=== PATIENT | male | born 1960 | race American Indian/Alaskan Native ===

== ENCOUNTER 2019-06-18 13:32 | Emergency (ER) | payer SELFPAY ==
[2019-06-18 13:53] VITALS: BP 130/79
--- NOTE | 2019-06-18 13:59 | Emergency Department Report ---
Chief Complaint: Anxiety Stated Complaint: ANXIETY/KNEE INFLAMMATION Time Seen by Provider: 06/18/19 13:56 - HPI History of Present Illness: 58 y o male PMH of anxiety presents with cc of left knee pain s/p trip but no fall incident yesterday. She states she tripped over something yesterday but did not fall. Patient states his dentist and having some left knee pain since the incident. He denies trauma, injuries or fall, - ROS Review of Systems: as noted in HPI - Exam Vital Signs: Vital Signs 06/18/19 13:51 Temperature 98.3 F Pulse Rate 73 Respiratory 16 Rate Blood Pressure 130/79 O2 Sat by Pulse 99 Oximetry Physical Exam: GEN:aao x 3, ambulatory EXT: non tender, no swelling MSE screening note: Focused history and physical exam performed. Due to findings the following was ordered: ED Medical Decision Making - Medical Decision Making 58-year-old male presents here for knee pain. Discussed the patient this is not a medical emergency and is to follow-up with the primary care physician. Vital signs are normal patient is in no acute distress. Discussed follow-up with therapist to manage his anxiety. ED Disposition for MSE Clinical Impression: Knee pain, Anxiety Disposition: Z-07 MED SCREENING EXAM-LEFT Is pt being admited?: No Does the pt Need Aspirin: No Condition: Stable Instructions: Arthralgia (ED) Additional Instructions: follow up with Dr larson Referrals: [facility] [Outside] - 3-5 Days [facility] [Outside] - 3-5 Days Forms: Work/School Release Form(ED) Time of Disposition: 13:57
== END 2019-06-18 14:19 | disposition left against medical advice (07) ==
LOC: ED 13:32
DX: M25.562 Pain in left knee (principal); F41.9 Anxiety disorder, unspecified; W18.40XA Slipping, tripping and stumbling without falling, unspecified, initial encounter; Y93.89 Activity, other specified; Y92.89 Other specified places as the place of occurrence of the external cause; Y99.8 Other external cause status
CPT/HCPCS: 99281